=== PATIENT | female | born 1970 | race Two or more races ===

== ENCOUNTER → 2020-07-20 | Outpatient (CLI) | payer OTHER ==
[~2020-07-20] MED LIST: AZEL137S4 NAS; FLUT9.9S NAS; LORA10TA75 PO; MAGN200T PO; MULT-449 PO
[2020-07-20 10:41] LABS: BASOPHILS % (AUTO) 1 % (0-1); EOSINOPHILS % (AUTO) 2 % (1-7); LYMPHOCYTES % (AUTO) 23 % (22-44); MEAN CORPUSCULAR HEMOGLOBIN 30.1 pg (27.0-34.8); MEAN CORPUSCULAR HGB CONC 33.2 g/dL (32.4-35.8); MONOCYTES % (AUTO) 6 % (2-9); NEUTROPHILS % (AUTO) 69 % (42-75); PLATELET COUNT 305 x10^3/uL (130-400); RED BLOOD COUNT 4.53 x10^6/uL (3.82-5.3); RED CELL DISTRIBUTION WIDTH 13.8 % (9.6-15.2)
[2020-07-20 10:43] LABS: MD NO
[2020-07-20 10:46] LABS: MICROSCOPIC NOT IND
[2020-07-20 10:54] LABS: ALANINE AMINOTRANSFERASE 32 U/L (12-78); ALBUMIN 3.8 g/dL (3.4-5.0); ANION GAP 7 mmol/L (5-15); CALCIUM 8.6 mg/dL (8.5-10.1); CHLORIDE 105 mmol/L (98-107); CREATININE 0.73 mg/dL (0.55-1.02)
[2020-07-20 10:58] LABS: ALKALINE PHOSPHATASE 87 U/L (45-117); BILIRUBIN,TOTAL 0.6 mg/dL (0.2-1.0); TOTAL PROTEIN 7.1 g/dL (6.4-8.2)
== END | disposition home or self-care (01) ==
LOC: STAR 09:30
PROVIDERS: ATTEND Obstetrics & Gynecology
DX: Z01.812 Encounter for preprocedural laboratory examination (principal); Z20.822 Contact with and (suspected) exposure to COVID-19; N84.0 Polyp of corpus uteri; N92.6 Irregular menstruation, unspecified; Z78.0 Asymptomatic menopausal state; D25.9 Leiomyoma of uterus, unspecified
CPT/HCPCS: 71046; 80053; 81003; 84702; 85025; 87635; 93005

== ENCOUNTER 2020-10-27 23:28 | Emergency (ER) | payer OTHER ==
[~2020-10-27] VITALS: Ht 157.5 cm; Wt 73.5 kg
[2020-10-27 23:35] VITALS: BP 134/79
--- NOTE | 2020-10-28 00:16 | NUR ---
CC OF VB SINCE 1699. PT STATES SHE HAD SURGERY IN TO REMOVE POLYPS AND HAS HAD SOME BLEEDING SINCE THEN BUT TODAY IT WORSENED TO 3-4 PADS PER HR WHICH PT STATES "THIS HAS NEVER HAPPENED BEFORE". PT ALSO HAS SOME NAUSEA AND HAS HAD CRAMPING. DENIES CRAMPING AT THIS TIME. SO AT BEDSIDE
[2020-10-28 00:36] LABS: BASOPHILS % (AUTO) 1 % (0-1); EOSINOPHILS % (AUTO) 2 % (1-7); LYMPHOCYTES % (AUTO) 17 % (22-44); MEAN CORPUSCULAR HEMOGLOBIN 30.2 pg (27.0-34.8); MEAN CORPUSCULAR HGB CONC 33.9 g/dL (32.4-35.8); MONOCYTES % (AUTO) 8 % (2-9); NEUTROPHILS % (AUTO) 72 % (42-75); PLATELET COUNT 285 x10^3/uL (130-400); RED BLOOD COUNT 4.01 x10^6/uL (3.82-5.3); RED CELL DISTRIBUTION WIDTH 12.9 % (9.6-15.2)
[2020-10-28 00:37] LABS: MD NO
[2020-10-28 00:46] LABS: ALBUMIN 3.5 g/dL (3.4-5.0); ANION GAP 5 mmol/L (5-15); CALCIUM 8.7 mg/dL (8.5-10.1); CHLORIDE 107 mmol/L (98-107)
[2020-10-28 00:52] LABS: CREATININE 0.73 mg/dL (0.55-1.02)
== END 2020-10-28 02:21 | disposition home or self-care (01) ==
LOC: ED 23:58
DX: D25.9 Leiomyoma of uterus, unspecified (principal); N93.8 Other specified abnormal uterine and vaginal bleeding; N83.292 Other ovarian cyst, left side; R10.9 Unspecified abdominal pain
CPT/HCPCS: 36415; 76830; 80048; 82040; 84703; 85025; 99284